=== PATIENT | female | born 1970 | race Caucasian/White ===

== ENCOUNTER 2023-03-31 09:43 | Emergency (ER) | payer OTHER ==
[2023-03-31 09:54] VITALS: BP 137/89
[2023-03-31 10:00] VITALS: BP 131/79
[2023-03-31 10:15] VITALS: BP 132/83
[2023-03-31 10:30] VITALS: BP 133/74
[2023-03-31] MEDS ORDERED: DEXAMETHASONE SOD. PHOSPHATE 10 MG/ML VIAL IM ONE (10:30)
[2023-03-31] MEDS ORDERED: diazePAM 10 MG/2 ML VIAL IM ONE (10:30)
[2023-03-31] MEDS ORDERED: KETOROLAC TROMETHAMINE 30 MG/ML SDV IM ONE (10:30)
[2023-03-31 10:45] VITALS: BP 127/79
[2023-03-31] MEDS ORDERED: NABUMETONE750 MG PO (11:09)
[2023-03-31] MEDS ORDERED: ORPHENADRINE100 MG PO (11:09)
[2023-03-31 11:16] VITALS: BP 127/79
== END 2023-03-31 11:23 | disposition home or self-care (01) | DRG 552 ==
LOC: ED 09:43
DX: M54.42 Lumbago with sciatica, left side (principal); F17.210 Nicotine dependence, cigarettes, uncomplicated